=== PATIENT | male | born 1975 | race African-American/Black ===

== ENCOUNTER → 2019-09-02 | Emergency (ER) | payer SELFPAY ==
[~2019-09-02] MED LIST: Aspirin Chewable 81 MG TAB ONE; Nitroglycerin 0.4 MG TAB 1 EACH ONE; Nitroglycerin 2% Ointment 1 INCH/1 GM Packet ONE
[2019-09-02 23:36] LABS: #Basophils 0.1 thou/uL (0.0-0.2); #Eosinphils 0.1 thou/uL (0.0-0.7); #Lymphocytes 1.4 thou/uL (1.20-3.40); #Monocytes 0.6 thou/uL (0.11-0.59); #Neutrophils 3.3 thou/uL (1.40-6.50); %Eosinophils 1.1 % (0.0-10.0); %Lymphocytes 25.7 % (21.0-51.0); %Neutrophils 61.2 % (42.0-75.0); Hemoglobin 15.9 g/dL (14.0-18.0); Mean Corpuscular HGB CONC 31.9 g/dL (32.0-36.0); Mean Corpuscular Hemoglobin 25.2 pg (27.0-31.0); Mean Corpuscular Volume 78.9 fL (78.0-98.0); Mean Platelet Volume 9.3 fL (7.4-10.4); Platelet Count 177 thou/uL (130-400); Red Blood Cell (RBC) Count 6.29 mill/uL (4.70-6.10); White Blood Cell (WBC) Count 5.3 thou/uL (4.8-10.8)
[2019-09-03 00:01] LABS: ALT (SGPT) 22 U/L (8-55); AST (SGOT) 57 U/L (5-34); Albumin 4.4 g/dL (3.5-5.0); Alkaline Phosphatase 98 U/L (40-110); Anion Gap 11 mmol/L (10-20); BUN (Urea Nitrogen) 22 mg/dL (8.9-20.6); Bilirubin, Total 0.6 mg/dL (0.2-1.2); Calc. Creatinine Clearance 0 mL/min (70-130); Carbon Dioxide 28 mmol/L (22-29); Chloride 99 mmol/L (98-107); Estimated GFR-MDRD 41; Globulin 4.6 g/dL (2.4-3.5); Glucose 83 mg/dL (70-105); Potassium 3.5 mmol/L (3.5-5.1); Sodium 134 mmol/L (136-145)
[2019-09-03 00:25] LABS: CKMB 7.3 ng/mL (0-6.6)
--- NOTE | 2019-09-03 08:59 | RAD ---
PORTABLE AP CHEST X-RAY: HISTORY: Chest pain that began today. COMPARISON: None. FINDINGS: The cardiac silhouette is magnified by projection. The pulmonary vasculature is within normal limits. There is linear density overlying the left hilar region which is probably related to subsegmental at electasis. No consolidation or pleural fluid is identified. The osseous structures have a normal appe arance. IMPRESSION: Findings likely related to subsegmental atelectasis in the medial aspect of the left mid lung zone. T here is otherwise no acute cardiopulmonary process. POS: OFF
== END ==
LOC: ERS 21:56
DX: R07.9 Chest pain, unspecified (principal); I10 Essential (primary) hypertension; I25.2 Old myocardial infarction
CPT/HCPCS: 71045; 80053; 82553; 84484; 85025; 93005; 96360

== ENCOUNTER 2019-11-27 21:13 | Emergency (ER) | payer SELFPAY ==
[2019-11-27] MEDS ORDERED: Nitroglycerin 2% Ointment 1 INCH/1 GM Packet ONE (22:06)
[2019-11-27] MEDS ORDERED: Aspirin Chewable 81 MG TAB ONE (22:06)
[2019-11-27 22:11] LABS: #Eosinphils 0.1 thou/uL (0.0-0.7); #Lymphocytes 1.6 thou/uL (1.20-3.40); #Monocytes 0.6 thou/uL (0.11-0.59); #Neutrophils 2.6 thou/uL (1.40-6.50); %Basophils 0.6 % (0.0-1.0); %Eosinophils 1.3 % (0.0-10.0); %Lymphocytes 32.2 % (21.0-51.0); %Monocytes 12.8 % (0.0-10.0); %Neutrophils 53.1 % (42.0-75.0); Hemoglobin 15.2 g/dL (14.0-18.0); Mean Corpuscular HGB CONC 30.6 g/dL (32.0-36.0); Mean Corpuscular Hemoglobin 24.2 pg (27.0-31.0); Mean Platelet Volume 9.7 fL (7.4-10.4); Platelet Count 183 thou/uL (130-400); RBC Distribution Width 12.5 % (11.5-14.5); Red Blood Cell (RBC) Count 6.28 mill/uL (4.70-6.10); White Blood Cell (WBC) Count 4.9 thou/uL (4.8-10.8)
--- NOTE | 2019-11-27 22:20 | RAD ---
Chest one view HISTORY: Chest pain. COMPARISON: 09/02/2019. FINDINGS: Cardiac silhouette is magnified by projection. Pulmonary vasculature upper limits of normal . Subtle scattered patchy areas of linear parenchymal prominence is unchanged from the previous exam. No lobar consolidation or evidence of pneumothorax. youth nutritional monitor leads overlie the chest. IMPRESSION: No active cardiopulmonary abnormalities are demonstrated.
[2019-11-27 22:28] LABS: ALT (SGPT) 14 U/L (8-55); AST (SGOT) 33 U/L (5-34); Albumin 4.2 g/dL (3.5-5.0); Alkaline Phosphatase 108 U/L (40-110); Anion Gap 13 mmol/L (10-20); BUN (Urea Nitrogen) 13 mg/dL (8.9-20.6); Bilirubin, Total 0.5 mg/dL (0.2-1.2); Calc. Creatinine Clearance 0 mL/min (70-130); Calcium 9.8 mg/dL (7.8-10.44); Carbon Dioxide 25 mmol/L (22-29); Chloride 104 mmol/L (98-107); Estimated GFR-MDRD 50; Globulin 4.9 g/dL (2.4-3.5); Glucose 78 mg/dL (70-105); Protein, Total 9.1 g/dL (6.0-8.3); Sodium 138 mmol/L (136-145)
[2019-11-27] MEDS ORDERED: Nitroglycerin 0.4 MG TAB 1 EACH ONE (22:34)
[2019-11-27 22:52] LABS: CKMB 6.4 ng/mL (0-6.6)
--- NOTE | 2019-11-28 00:30 | PDOC.EVN ---
Event Note - Event Note Event Note: Patient went AMA before seen in ED, notified by nursing after elopement.
== END 2019-11-27 23:44 | disposition left against medical advice (07) ==
LOC: ERS 21:13
DX: R07.9 Chest pain, unspecified (principal); M79.602 Pain in left arm; R79.89 Other specified abnormal findings of blood chemistry; I10 Essential (primary) hypertension; I25.2 Old myocardial infarction
CPT/HCPCS: 71045; 80053; 82553; 84484; 85025; 93005; 94760

== ENCOUNTER 2021-01-31 16:40 | Emergency (ER) | payer SELFPAY | END 2021-01-31 17:27 | disposition home or self-care (01) | LOC: ERS 16:40 | DX: I10 Essential (primary) hypertension (principal); I25.2 Old myocardial infarction; Z95.5 Presence of coronary angioplasty implant and graft; Z79.899 Other long term (current) drug therapy | CPT/HCPCS: 99283 ==